=== PATIENT | female | born 1965 | race Caucasian/White ===

== ENCOUNTER 2022-04-05 03:39 | Emergency (ER) | payer OTHER ==
[~2022-04-05] VITALS: Ht 152.4 cm; Wt 53.5 kg
== END 2022-04-05 04:50 | disposition home or self-care (01) ==
LOC: ED 03:39
DX: S22.32XA Fracture of one rib, left side, initial encounter for closed fracture (principal); W18.39XA Other fall on same level, initial encounter; Y93.89 Activity, other specified; Y92.89 Other specified places as the place of occurrence of the external cause; Y99.8 Other external cause status

== ENCOUNTER 2022-04-11 09:14 | Emergency (ER) | payer OTHER ==
[~2022-04-11] VITALS: Ht 152.4 cm; Wt 52.2 kg
[2022-04-11] MEDS ORDERED: VIBRAMYCIN100 MG PO (14:03)
[2022-04-11] MEDS ORDERED: TRAMADOL HCL50 MG PO (14:03)
== END 2022-04-11 14:11 | disposition home or self-care (01) ==
LOC: ED 09:14 → EDBD 09:16 → ED 09:16
DX: S22.42XA Multiple fractures of ribs, left side, initial encounter for closed fracture (principal); F17.200 Nicotine dependence, unspecified, uncomplicated; W18.39XA Other fall on same level, initial encounter; Y93.89 Activity, other specified; Y92.89 Other specified places as the place of occurrence of the external cause; Y99.8 Other external cause status